=== PATIENT | male | born 1995 | race Caucasian/White ===

== ENCOUNTER 2017-01-02 17:52 | Emergency (ER) | payer OTHER ==
[2017-01-02 17:59] VITALS: RESP 16; TEMP 98.6
[2017-01-02] MEDS ORDERED: FLUORESCEIN SODIUM 1 MG STRIP OP ONE ×2 (19:40→19:42)
[2017-01-02] MEDS ORDERED: PROPARACAINE 0.5% 15 ML OPHT DROP ONE (19:40)
[2017-01-02] MEDS ORDERED: PROPARACAINE 0.5% 15 ML OPHT DROP EACHEYE ONE (19:42)
--- NOTE | 2017-01-02 19:42 | EDPHY ---
H & P Time Seen by Provider: 01/02/17 19:32 HPI/ROS: CHIEF COMPLAINT: Left eye redness and drainage HISTORY OF PRESENT ILLNESS: 21-year-old male presents with left eye redness and drainage. Onset of left eye irritation 5 days ago, gradually increasing since then. He now feels like there is a film over his eye and has decreased vision in the left eye. No associated pain and no photophobia. He does not wear contact lenses. The right eye is starting to become affected with drainage as well. No recent URI symptoms. REVIEW OF SYSTEMS: Constitutional: No fever, no chills ENT: No sore throat Respiratory: No cough, no shortness of breath Cardiac: No chest pain Gastrointestinal: No nausea, no vomiting, no abdominal pain Genitourinary: no dysuria Musculoskeletal: No pain Skin: No rash Neurological: No headache, no numbness, no weakness Psychiatric: No depression Past Medical/Surgical History: Denies Smoking Status: Current every day smoker Physical Exam: Visual Acuity: noted from Nurse's notes. Lids: no proptosis, erythema of the eyelids, no vesicles Conjunctivae: left eye-diffuse erythema and yellowish discharge; right eye--no conjunctival erythema Pupils:equal round and reactive to light EOMI Cornea: Normal, no fluorescein uptake Anterior chamber:Clear, no hyphema Constitutional: Initial Vital Signs Temperature (C) 37 C 01/02/17 17:56 Heart Rate 93 01/02/17 17:56 Respiratory Rate 16 01/02/17 17:56 Blood Pressure 164/107 H 01/02/17 17:56 O2 Sat (%) 98 01/02/17 17:56 O2 Delivery Mode Room Air Allergies/Adverse Reactions: No Known Allergies Allergy (Unverified 01/02/17 17:55) Home Medications: Medication Instructions Recorded NK [No Known Home Meds] 01/02/17 Medical Decision Making Procedures: Alcaine and fluorescein exam performed. No fluorescein uptake. Differential Diagnosis: Differential diagnosis includes hyphema, acute iritis, traumatic mydriasis, corneal abrasion, globe rupture. - Data Points Medications Given: Discontinued Medications Fluorescein Sodium ([id number]) 1 mg OP EDNOW ONE Stop: 01/02/17 19:43 Last Admin: 01/02/17 19:44 Dose: 1 mg Proparacaine HCl (Alcaine 0.5%) 1 drops EACHEYE ONCE ONE Stop: 01/02/17 19:43 Last Admin: 01/02/17 19:43 Dose: 1 drop Departure - Departure Disposition: Home, Routine, Self-Care Clinical Impression: Acute conjunctivitis of left eye Qualifiers: Acute conjunctivitis type: bacterial Qualified Code(s): H10.32 - Unspecified acute conjunctivitis, left eye Condition: Good Instructions: Ofloxacin (Into the eye), Conjunctivitis (ED) Additional Instructions: Instill Ofloxacin 2 drops into both eyes every 3 hours while awake for 5 days. Referrals: Ranjit Garcia MD [Medical Doctor] - As per Instructions (Follow-up on Thursday if you continue to have drainage or visual changes. Return to the emergency department over the weekend for worsening symptoms or any concerns.)
[2017-01-02] MEDS ORDERED: OFLOXACIN 0.3% SOLN PREPACK OPHT.BTL TAKEHOME ONE (19:51)
[2017-01-02 20:16] VITALS: BP 157/94; PULSE 84; O2SAT 97
== END 2017-01-02 20:10 | disposition home or self-care (01) ==
DX: H10.32 Unspecified acute conjunctivitis, left eye (principal); F17.200 Nicotine dependence, unspecified, uncomplicated

== ENCOUNTER → 2017-06-02 | Outpatient (CLI) | payer OTHER | LOC: FIMAGING 17:33 | PROVIDERS: ATTEND Orthopaedic Surgery | DX: S82.141A Displaced bicondylar fracture of right tibia, initial encounter for closed fracture (principal) ==